=== PATIENT | female | born 1990 | race Hispanic/Latino ===

== ENCOUNTER 2018-03-18 13:16 | Emergency (ER) | payer MEDICAID, OTHER ==
[2018-03-18 13:56] LABS: BASOPHILS % (AUTO) 1.1 % (0.0-5.0); EOSINOPHILS % (AUTO) 2.8 % (0.0-8.0); HEMATOCRIT 37.5 % (36-48); LYMPHOCYTES % (AUTO) 29.4 % (21.0-51.0); MEAN CORPUSCULAR HEMOGLOBIN 23.2 pg (27.0-33.0); MEAN CORPUSCULAR HGB CONC 31.8 g/dL (32.0-36.0); MEAN CORPUSCULAR VOLUME 72.9 fL (79-99); MONOCYTES % (AUTO) 4.8 % (3.0-13.0); NEUTROPHILS % (AUTO) 61.9 % (40.0-77.0); PLATELET COUNT (AUTO) 338 K/uL (130-400); RED BLOOD CELL COUNT(AUTO) 5.14 MIL/uL (4.00-5.50); RED CELL DISTRIBUTION WIDTH 17.2 % (11.0-15.5); WHITE BLOOD COUNT (AUTO) 9.4 K/uL (4.8-10.8)
== END 2018-03-18 15:33 | disposition home or self-care (01) ==
LOC: EDH 13:16
DX: O02.1 Missed abortion (principal); Z3A.01 Less than 8 weeks gestation of pregnancy; Z88.1 Allergy status to other antibiotic agents
CPT/HCPCS: 36415; 76817; 84702; 85025

== ENCOUNTER 2018-04-30 18:38 | Emergency (ER) | payer MEDICAID ==
[2018-04-30 19:24] LABS: APPEARANCE,URINE Clear (CLEAR); BILIRUBIN,URINE Negative (NEGATIVE); COLOR,URINE Yellow (YELLOW); GLUCOSE, URINE (UA) Negative (NEGATIVE); KETONES,URINE Negative (NEGATIVE); LEUKOCYTE ESTERASE ,URINE Small (NEGATIVE); NITRATE,URINE Negative (NEGATIVE); OCCULT BLOOD,URINE Negative (NEGATIVE); PH,URINE 6.5 (5.0-8.0); PROTEIN,URINE Negative (NEGATIVE)
[2018-04-30 19:25] LABS: HCG,QUAL RESULT POSITIVE (NEGATIVE)
[2018-04-30 19:44] LABS: BACTERIA,URINE Moderate /HPF (None Seen); RBC,URINE 0-1 /HPF (0-1)
[2018-04-30 19:45] LABS: SQUAMOUS EPITHELIAL CELL,UR Moderate /HPF (0-2)
[2018-04-30 20:06] LABS: BASOPHILS % (AUTO) 0.4 % (0.0-5.0); EOSINOPHILS % (AUTO) 0.8 % (0.0-8.0); HEMATOCRIT 35.4 % (36-48); LYMPHOCYTES % (AUTO) 22.6 % (21.0-51.0); MEAN CORPUSCULAR HEMOGLOBIN 23.4 pg (27.0-33.0); MEAN CORPUSCULAR HGB CONC 32.4 g/dL (32.0-36.0); MEAN CORPUSCULAR VOLUME 72.1 fL (79-99); MONOCYTES % (AUTO) 5.9 % (3.0-13.0); NEUTROPHILS % (AUTO) 70.3 % (40.0-77.0); PLATELET COUNT (AUTO) 289 K/uL (130-400); RED BLOOD CELL COUNT(AUTO) 4.91 MIL/uL (4.00-5.50); RED CELL DISTRIBUTION WIDTH 17.5 % (11.0-15.5); WHITE BLOOD COUNT (AUTO) 12.1 K/uL (4.8-10.8)
[2018-04-30 20:21] LABS: CREATININE 0.7 mg/dL (0.5-1.5); POTASSIUM 3.4 mmol/L (3.5-5.1)
== END 2018-04-30 21:44 | disposition home or self-care (01) ==
LOC: EDH 18:38
DX: O20.0 Threatened abortion (principal); Z88.1 Allergy status to other antibiotic agents; Z3A.11 11 weeks gestation of pregnancy
CPT/HCPCS: 36415; 76801; 80048; 81001; 81025; 84702; 85025; 86900; 86901

== ENCOUNTER 2020-02-10 17:30 | Emergency (ER) | payer MEDICAID, OTHER ==
[2020-02-10 18:13] LABS: BASOPHILS % (AUTO) 0.2 % (0.0-5.0); EOSINOPHILS % (AUTO) 1.9 % (0.0-8.0); HEMATOCRIT 37.2 % (36-48); LYMPHOCYTES % (AUTO) 29.7 % (21.0-51.0); MEAN CORPUSCULAR HEMOGLOBIN 21.9 pg (27.0-33.0); MEAN CORPUSCULAR HGB CONC 29.6 g/dL (32.0-36.0); MEAN CORPUSCULAR VOLUME 74.1 fL (79-99); MONOCYTES % (AUTO) 5.8 % (3.0-13.0); NEUTROPHILS % (AUTO) 62.1 % (40.0-77.0); PLATELET COUNT (AUTO) 338 K/uL (130-400); RED BLOOD CELL COUNT(AUTO) 5.02 MIL/uL (4.00-5.50); RED CELL DISTRIBUTION WIDTH 16.5 % (11.0-15.5); WHITE BLOOD COUNT (AUTO) 9.3 K/uL (4.8-10.8)
[2020-02-10 18:16] LABS: APPEARANCE,URINE Clear (CLEAR); BILIRUBIN,URINE Negative (NEGATIVE); COLOR,URINE Yellow (YELLOW); GLUCOSE, URINE (UA) Negative (NEGATIVE); KETONES,URINE Negative (NEGATIVE); LEUKOCYTE ESTERASE ,URINE Negative (NEGATIVE); NITRATE,URINE Negative (NEGATIVE); OCCULT BLOOD,URINE Moderate (NEGATIVE); PROTEIN,URINE Negative (NEGATIVE); UROBILINOGEN,URINE 0.2 mg/dL (0.2-1.0)
[2020-02-10] MEDS ORDERED: SODIUM CHLORIDE 0.9% 1000ML 1,000 ML IV ONE (18:24)
[2020-02-10 18:36] LABS: BACTERIA,URINE Rare /HPF (None Seen)
[2020-02-10 18:42] LABS: ALBUMIN 3.5 g/dL (3.5-5.0); BILIRUBIN,TOTAL 0.1 mg/dL (0.2-1.0); CREATININE 0.8 mg/dL (0.5-1.5); POTASSIUM 3.8 mmol/L (3.5-5.1); TOTAL PROTEIN, SERUM 7.3 g/dL (6.0-8.3)
[2020-02-10] MEDS ORDERED: KETOROLAC TROMETHAMINE 30MG/ML ONE (18:57)
== END 2020-02-10 20:09 | disposition home or self-care (01) ==
LOC: EDH 17:30
DX: R10.31 Right lower quadrant pain (principal); Z88.1 Allergy status to other antibiotic agents
CPT/HCPCS: 36415; 74176; 80053; 81001; 83690; 84702; 85025; 96365; 96375; 99284; J1885; J7030

== ENCOUNTER 2020-05-10 19:18 | Emergency (ER) | payer OTHER ==
[2020-05-10] MEDS ORDERED: ACETAMINOPHEN-CODEINE 300/30MG TAB ONE (19:56)
[2020-05-10] MEDS ORDERED: GUAIFENESIN-DM 200/20 MG 10 ML ONE (20:01)
== END 2020-05-10 20:49 | disposition home or self-care (01) ==
LOC: EDH 19:18
DX: J06.9 Acute upper respiratory infection, unspecified (principal); J45.909 Unspecified asthma, uncomplicated; Z98.890 Other specified postprocedural states; Z88.1 Allergy status to other antibiotic agents
CPT/HCPCS: 71045

== ENCOUNTER 2021-02-24 12:13 | Emergency (ER) | payer OTHER ==
[~2021-02-24] VITALS: Ht 154.9 cm; Wt 104.3 kg
[2021-02-24 13:08] LABS: BASOPHILS % (AUTO) 0.2 % (0.0-5.0); EOSINOPHILS % (AUTO) 1.4 % (0.0-8.0); HEMATOCRIT 37.6 % (36-48); LYMPHOCYTES % (AUTO) 26.2 % (21.0-51.0); MEAN CORPUSCULAR HEMOGLOBIN 21.5 pg (27.0-33.0); MEAN CORPUSCULAR HGB CONC 29.8 g/dL (32.0-36.0); MEAN CORPUSCULAR VOLUME 72.3 fL (79-99); MONOCYTES % (AUTO) 5.4 % (3.0-13.0); NEUTROPHILS % (AUTO) 66.6 % (40.0-77.0); PLATELET COUNT (AUTO) 324 K/uL (130-400); RED CELL DISTRIBUTION WIDTH 16.8 % (11.0-15.5); WHITE BLOOD COUNT (AUTO) 9.6 K/uL (4.8-10.8)
[2021-02-24 13:20] LABS: APPEARANCE,URINE Clear (CLEAR); BILIRUBIN,URINE Negative (NEGATIVE); COLOR,URINE Yellow (YELLOW); GLUCOSE, URINE (UA) Negative (NEGATIVE); KETONES,URINE Negative (NEGATIVE); LEUKOCYTE ESTERASE ,URINE Small (NEGATIVE); NITRATE,URINE Negative (NEGATIVE); OCCULT BLOOD,URINE Negative (NEGATIVE); PROTEIN,URINE Negative (NEGATIVE)
[2021-02-24 13:37] LABS: ALBUMIN 3.5 g/dL (3.5-5.0); BILIRUBIN,TOTAL 0.2 mg/dL (0.2-1.0); CREATININE 0.9 mg/dL (0.5-1.5); POTASSIUM 3.8 mmol/L (3.5-5.1); TOTAL PROTEIN, SERUM 7.8 g/dL (6.0-8.3)
[2021-02-24 13:40] LABS: HCG,QUAL RESULT NEGATIVE (NEGATIVE)
[2021-02-24 13:52] LABS: RBC,URINE None Seen /HPF (0-1)
[2021-02-24 13:53] LABS: BACTERIA,URINE Few /HPF (None Seen); SQUAMOUS EPITHELIAL CELL,UR 0-2 /HPF (0-2)
[2021-02-24] MEDS ORDERED: MAG/ALUM/SIMETH 30 ML UDCUP ONE (14:57)
[2021-02-24] MEDS ORDERED: LIDOCAINE HCL 2% VISCOUS 15 ML UDCUP ONE (14:57)
[2021-02-24] MEDS ORDERED: FAMOTIDINE 20MG TAB ONE (14:58)
[2021-02-24] MEDS ORDERED: MAG/ALUM/SIMETH 30 ML UDCUP PO ONE (15:00)
[2021-02-24] MEDS ORDERED: FAMOTIDINE 20MG TAB PO ONE (15:00)
[2021-02-24] MEDS ORDERED: FAMO-136 PO (16:14)
[2021-02-24] MEDS ORDERED: DICY20TA2 PO (16:14)
[2021-02-24 16:34] VITALS: BP 132/65
== END 2021-02-24 16:35 | disposition home or self-care (01) ==
LOC: EDH 12:13
DX: K27.9 Peptic ulcer, site unspecified, unspecified as acute or chronic, without hemorrhage or perforation (principal); R07.89 Other chest pain; E66.9 Obesity, unspecified; Z68.41 Body mass index [BMI] 40.0-44.9, adult
CPT/HCPCS: 36415; 71045; 80053; 81001; 81025; 83690; 84484; 85025

== ENCOUNTER 2024-06-16 05:57 | Emergency (ER) | payer SELFPAY ==
[~2024-06-16] VITALS: Ht 154.9 cm; Wt 108.9 kg
[~2024-06-16 05:57] MED LIST: DICY20TA2 PO; FAMO-136 PO
[2024-06-16 06:12] VITALS: BP 131/89; PULSE 72; RESP 20; TEMP 97.3; O2SAT 97
--- NOTE | 2024-06-16 06:12 | ERN ---
ED Note History of Present Illness Stated Complaint: EAR PAIN Chief Complaint: Earache Time Seen by MD: 06:07 Dictation: This is a 34-year-old female who presented to the emergency room with complaints of left-sided earache for the past 3 days. She denied any bleeding or discharge from the left ear no fever chills or rigors. Patient uses Q-tips to clean her ears often Temperature 97.3 pulse 72 respirations 20 blood pressure 131/89 pulse oximetry 97% on room air Allergies: Coded Allergies: levofloxacin (Unverified Allergy, Intermediate, HIVES, 06/16/24) No Known Allergies (Verified Allergy, Unknown, 06/16/24) Home Meds Active Scripts Carbamide Peroxide (Ear Drops) 6.5 % Drops, 2 DROP OTIC HS for 3 Days, #15 ML 0 Refills Prov:MARLIN HERNANDEZ MD 06/16/24 Dicyclomine HCl (Bentyl) 20 Mg Tab, 20 MG PO QIDP, #28 TAB Prov:SHAMEKA BOYER 02/24/21 Famotidine (Pepcid) 20 Mg Tablet, 20 MG PO BIDAC, #60 TAB Prov:SHAMEKA BOYER 02/24/21 Past Medical History Past Medical History: No Pertinent History Additional Past Medical Hx: Obesity Surgical History: Family History: Negative RN Note Reviewed/Agreed w/PFSH: Yes Review of System Dictation As described in the history of present illness Constitutional: Negative for fever,chills, and weight loss Eyes: Negative for injury, pain,redness, and discharge ENT: Negative for injury,pain or swelling Cardiovascular: Negative for chest pain, palpitations, and edema Respiratory: Negative for shortness of breath, cough, and wheezing, Abdomen/GI: Negative for abdominal pain, nausea, vomiting, diarrhea, and constipation Back: Negative for injury and pain : Negative for injury, bleeding and discharge MS/Extremity: Negative for injury and deformity Skin: Negative for rash, and discoloration Neuro: Negative for headache, weakness, numbness, tingling, and seizure Psych: Negative for suicide ideation, homicidal ideation, and hallucinations Initial Vital Sign VS Vital Signs Date Time Temp Pulse Resp B/P (MAP) Pulse Ox O2 Delivery O2 Flow Rate FiO2 06/16/24 05:58 97.3 72 20 131/89 97 Room Air 0 3/13/25 06:12 21 Physical Exam Dictation General: awake, alert, NAD extremely obese Head/Face: Normocephalic, atraumatic Eyes: PERRL, EOMI, vision at baseline ENT: oral cavity clear, TMs clear, no signs of infection left ear-external auditory canal is clean small amount of cerumen towards the end of the canal tympanic membranes appear normal and there is no perforation I do not appreciate any erythema or pus. Left TMJ movements are painful. Neck: Trachea midline, supple, no nuchal rigidity Cardiovascular: RRR, normal S1/S2, No MRGs, no JVD Respiratory: CTAB, no respiratory distress, No rales or wheezes Abdomen: Soft, non-tender, non-distended, normal bowel sounds, no guarding or rebound. Skin: Warm, dry, normal turgor, no rash MS/Extremity: Pulses equal, no cyanosis, neurovascular intact, FROM Neuro: COAx4, GCS 15, strength 5/5, CN 2-12 intact, normal cerebellar exam, normal gait, Psych: Normal behavior, mood, and affect normal Extremities-trace edema without any palpable cords, Homans sign is negative ED Course ED Course Orders Procedure Category Date Status Time Ketorolac PHA 06/16/24 Complete Tromethamine 30mg/Ml 06:30 Current Medications Medications (Trade) Dose Ordered Sig/Candy Route PRN Reason Start Time Stop Time Status Last Admin Dose Admin Ketorolac Tromethamine (toRADol) 30 mg ONCE ONCE IM 06/16/24 06:30 06/16/24 06:31 DC 06/16/24 06:40 Vital Signs Date Time Temp Pulse Resp B/P (MAP) Pulse Ox O2 Delivery O2 Flow Rate FiO2 06/16/24 06:12 97.3 72 20 131/89 97 Room Air* 0 21 06/16/24 05:58 97.3 72 20 131/89 97 Room Air 0 Medical Decision Making MDM MDM: Differential diagnosis: Otitis externa, otitis media, foreign body, impacted cerumen, ruptured tympanic membrane Rationale: Tests considered and ordered secondary to shared decision making include: Previous outside records reviewed: Old ER visits. Risk of complication and/or morbidity or mortality of patient management: None Medications-Per medication reconciliation Need for hospitalization: Patient does not meet criteria for hospitalization. Need for emergency major/minor surgery: No There are no social concerns with this patient. Prescription drug management Prescriptions will include symptomatic care Patient's prior external medical records from other ER visits were reviewed by me as indicated. Prior testing and results from previous visits were reviewed. Prior tests were taken into account with medical decision making and resource utilization, independent historian/historians were used to obtain complete medical history. I independently interpreted the test that were performed, results were reviewed by me and considered findings on radiology if ordered. Medical management and examination interpretation discussions were had by me with other qualified healthcare professionals as indicated for the patient's care. Problem List Problem List: (1) Earache on left (2) Obesity (3) Left-sided temporomandibular joint pain-dysfunction syndrome DX & DISP Disposition: Discharge Departure Impression: Primary Impression: Earache on left Additional Impressions: Obesity, TMJ tenderness, left Condition: Stable Scripts Carbamide Peroxide (Ear Drops) 6.5 % Drops 2 DROP OTIC HS for 3 Days, #15 ML 0 Refills Prov: MARLIN HERNANDEZ MD 06/16/24 Additional Instructions: Patient and the caregiver have been informed of all the diagnostic tests and the imaging conducted during the today's visit to the emergency room and has verba lized understanding of the results I have personally reviewed and interpreted all diagnostic exams performed here in the ER today as well as the vital signs documented by the nursing staff. The patient is now being discharged to home and should follow up with the primary care physician or the specialist as directed by the ER staff. Follow-up with primary care provider in 1 to 2 days. Take medications as directed here in the emergency room. Okay to continue home medications unless otherwise discussed during your visit in the emergency room today. Return to your nearest emergency room if symptoms worsen or if there is no improvement. Call 911 if you need immediate assistance. Take Tylenol or Motrin [id number] as needed and if no contraindications are present. Increase oral hydration. A wound culture or urine culture was ordered here in the emergency room department please follow-up with primary care provider and advise them to get repeat ports from our facility. If you had any Salvatoer wrap/splints t hat were applied here, please do not remove them until you see your primary care or specialty. Referrals: SELF,REFERRAL (PCP) MARLIN HERNANDEZ MD Jun 16, 2024 06:12
[2024-06-16] MEDS ORDERED: [UNRECOGNIZED DRUG - CODE] OTIC (06:21)
[2024-06-16] MEDS: ketOROlac 30MG VIAL (30MG/ML) IM ONE (06:40)
== END 2024-06-16 07:02 | disposition home or self-care (01) ==
LOC: EDH 05:57
DX: H92.02 Otalgia, left ear (principal); M26.622 Arthralgia of left temporomandibular joint; E66.9 Obesity, unspecified; Z79.899 Other long term (current) drug therapy; Z88.1 Allergy status to other antibiotic agents; Z98.890 Other specified postprocedural states
CPT/HCPCS: 99283; 96372; J1885